=== PATIENT | male | born 1945 | race Caucasian/White ===

== ENCOUNTER 2017-04-02 11:30 | Emergency (ER) | payer OTHER ==
[2017-04-02 11:59] VITALS: TEMP 98.2
--- NOTE | 2017-04-02 13:10 | EDPHY ---
H & P Time Seen by Provider: 04/02/17 12:20 HPI/ROS: CHIEF COMPLAINT: Pain in both shoulders HISTORY OF PRESENT ILLNESS: Patient lives in [place] and travels during the summer. He had symptoms starting on March 12 when he got up to get out of the car and felt severe pain in both shoulders and in both eyes. Symptoms are worsening and he was seen at urgent care yesterday and today with a presumptive diagnosis of polymyalgia rheumatica. Patient has pain in both shoulders in both eyes. He is able to walk but it is very painful with movement or palpation. He is on a statin. He does not have fever or chills. No skin rash or recent injury or trauma. REVIEW OF SYSTEMS: Eye: no change in vision ENT: no sore throat Cardiac: no chest pain or syncope Pulmonary: no cough or SOB Abdomen: no vomiting, diarrhea, abdominal pain Musculoskeletal: HPI Skin: no rash Neuro: no headache Constitutional: no fever : no urinary symptoms A comprehensive 10 point review of systems is otherwise negative aside from elements mentioned in the history of present illness. PAST MEDICAL HISTORY: Includes cardiac stenting, appendicitis, currently on a statin. Social history: Traveling from [place] with his . General Appearance: Alert and conversant, cooperative. Eyes: No scleral icterus. ENT, Mouth: Normal mucous membranes. Respiratory: Normal respiratory effort, breath sounds equal, lungs are clear to auscultation. Cardiovascular: Regular rate and rhythm. Gastrointestinal: Abdomen is soft and non tender. Neurological: Alert and oriented x3. Normally conversant. Face symmetric, normal movement and sensation in all extremities. Skin: Warm and dry, no rashes. Musculoskeletal: I can internally and externally rotate both shoulders easily, but he has pain in the deltoids with forced abduction greater than the level of the clavicles. He is able to sit up and stand up out of a chair but with pain. He does not have focal tenderness in either the upper arm or the proximal thigh and compartments are soft in all 4 extremities. Psychiatric: Not agitated. Emergency Department course/MDM: Possibility of rhabdomyolysis considered. Also the possibility of polymyalgia rheumatica. Labs to include CPK and sedimentation rate. 1421: Sedimentation rate 15, CPK normal, white blood cell count [id number]. 1437: Discussed with Dory, add CRP and ELVIN. No steroids, symptomatic treatment, he will call the patient and see him in the office tomorrow for follow-up. Discussed with patient and who are comfortable with the plan. 1 oral Percocet and prescription for 11. Smoking Status: Never smoked Constitutional: Initial Vital Signs Temperature (C) 36.8 C 04/02/17 11:56 Heart Rate 82 04/02/17 11:56 Respiratory Rate 18 04/02/17 11:56 Blood Pressure 150/85 H 04/02/17 11:56 O2 Sat (%) 94 04/02/17 11:56 O2 Delivery Mode Room Air Allergies/Adverse Reactions: No Known Allergies Allergy (Unverified 04/02/17 11:54) Home Medications: Medication Instructions Recorded ASPIRIN 04/02/17 Amlodipine Besylate 04/02/17 B12/Levomefolate Calcium/B-6 04/02/17 [id number] 149-Hyal 04/02/17 Hydrochlorothiazide 04/02/17 IBUPROFEN 04/02/17 Losartan Potassium 04/02/17 Pepcid 04/02/17 Pravastatin Sodium 04/02/17 oxyCODONE/APAP 5/325 [Percocet] 1 tab PO Q4-6PRN PRN #11 tab 04/02/17 Medical Decision Making Differential Diagnosis: Differential considered including but not limited to septic joint, rhabdomyolysis, polymyalgia rheumatica, other arthritis. - Data Points Laboratory Results: Laboratory Results 04/02/17 13:27 04/02/17 13:27 04/02/17 04/02/17 04/02/17 Unknown Unknown 13:27 WBC RBC Hgb Hct MCV MCH MCHC RDW Plt Count MPV Neut % (Auto) Lymph % (Auto) Blaine % (Auto) Eos % (Auto) Baso % (Auto) Nucleat RBC Rel Count Absolute Neuts (auto) Absolute Lymphs (auto) Absolute Monos (auto) Absolute Eos (auto) Absolute Basos (auto) Absolute Nucleated RBC Immature Gran % Immature Gran # ESR Sodium 137 mEq/L mEq/L (134-144) Potassium 4.4 mEq/L mEq/L (3.5-5.2) Chloride 101 mEq/L mEq/L (97-110) Carbon Dioxide 20 mEq/l L mEq/l (22-31) Anion Gap 16 mEq/L mEq/L (8-16) BUN 13 mg/dL mg/dL (7-23) Creatinine 0.7 mg/dL mg/dL (0.7-1.3) Estimated GFR > 60 Glucose 101 mg/dL H mg/dL (70-100) Calcium 9.9 mg/dL mg/dL (8.5-10.4) Creatine Kinase 97 IU/L IU/L (0-224) C-Reactive Protein Pending ELVIN Screen Pending 04/02/17 13:27 WBC 10.82 10^3/uL H 10^3/uL (3.80-9.50) RBC 5.04 10^6/uL 10^6/uL (4.40-6.38) Hgb 15.1 g/dL g/dL (13.7-17.5) Hct 44.1 % % (40.0-51.0) MCV 87.5 fL fL (81.5-99.8) MCH 30.0 pg pg (27.9-34.1) MCHC 34.2 g/dL g/dL (32.4-36.7) RDW 11.9 % % (11.5-15.2) Plt Count 476 10^3/uL H 10^3/uL (150-400) MPV 9.4 fL fL (8.7-11.7) Neut % (Auto) 64.5 % % (39.3-74.2) Lymph % (Auto) 20.7 % % (15.0-45.0) Blaine % (Auto) 13.8 % H % (4.5-13.0) Eos % (Auto) 0.3 % L % (0.6-7.6) Baso % (Auto) 0.2 % L % (0.3-1.7) Nucleat RBC Rel Count 0.0 % % (0.0-0.2) Absolute Neuts (auto) 6.99 10^3/uL H 10^3/uL (1.70-6.50) Absolute Lymphs (auto) 2.24 10^3/uL 10^3/uL (1.00-3.00) Absolute Monos (auto) 1.49 10^3/uL H 10^3/uL (0.30-0.80) Absolute Eos (auto) 0.03 10^3/uL 10^3/uL (0.03-0.40) Absolute Basos (auto) 0.02 10^3/uL 10^3/uL (0.02-0.10) Absolute Nucleated RBC 0.00 10^3/uL 10^3/uL (0-0.01) Immature Gran % 0.5 % % (0.0-1.1) Immature Gran # 0.05 10^3/uL 10^3/uL (0.00-0.10) ESR 15 MM/HR MM/HR (0-20) Sodium Potassium Chloride Carbon Dioxide Anion Gap BUN Creatinine Estimated GFR Glucose Calcium Creatine Kinase C-Reactive Protein ELVIN Screen Departure - Departure Disposition: Home, Routine, Self-Care Clinical Impression: Musculoskeletal pain Condition: Good Instructions: Musculoskeletal Pain (ED) Additional Instructions: See Dr. Connors in the office tomorrow; call at [phone] if you don't hear from them today. Referrals: LEO GARCIA [Other] - As per Instructions Chris Connors MD [[facility] Primary Care Provider] - 1 day without fail Prescriptions: oxyCODONE/APAP 5/325 [Percocet] 1 tab PO Q4-6PRN PRN #11 tab PRN Reason: Pain
[2017-04-02 13:52] LABS: % IMMATURE GRANULYOCYTES 0.5 % (0.0-1.1); ABSOLUTE IMMATURE GRANULOCYTES 0.05 10^3/uL (0.00-0.10); ADD DIFF? NO; ADD MORPH? NO; ADD SCAN? NO; ATYPICAL LYMPHOCYTE FLAG 0 (0-99); FRAGMENT RBC FLAG 10 (0-99); HEMATOCRIT 44.1 % (40.0-51.0); HEMOGLOBIN 15.1 g/dL (13.7-17.5); LEFT SHIFT FLG 0 (0-99); LIPEMIA HEMOLYSIS FLAG 90 (0-99); MEAN CELL HEMOGLOBIN CONCENTR. 34.2 g/dL (32.4-36.7); MEAN CELL VOLUME 87.5 fL (81.5-99.8); MEAN PLATELET VOLUME 9.4 fL (8.7-11.7); PLATELET CLUMPS FLAG 10 (0-99); PLATELET COUNT 476 10^3/uL (150-400); RED BLOOD CELL COUNT 5.04 10^6/uL (4.40-6.38); RED CELL DISTRIBUTION WIDTH 11.9 % (11.5-15.2)
[2017-04-02 13:56] LABS: ANION GAP 16 mEq/L (8-16); CALCIUM 9.9 mg/dL (8.5-10.4); CARBON DIOXIDE 20 mEq/l (22-31); CHLORIDE 101 mEq/L (97-110); CREATININE 0.7 mg/dL (0.7-1.3); GLOMERULAR FILTRATION RATE > 60; GLUCOSE 101 mg/dL (70-100); POTASSIUM 4.4 mEq/L (3.5-5.2); SODIUM 137 mEq/L (134-144)
[2017-04-02 14:19] LABS: SEDIMENTATION RATE 15 MM/HR (0-20)
[2017-04-02] MEDS ORDERED: OXYCODONE/APAP 5/325 TAB PO ONE (14:49)
[2017-04-02 15:31] VITALS: BP 142/82; PULSE 85; RESP 20; O2SAT 95
== END 2017-04-02 15:27 | disposition home or self-care (01) ==
DX: M25.511 Pain in right shoulder (principal); M25.512 Pain in left shoulder; Z79.82 Long term (current) use of aspirin